=== PATIENT | female | born 1955 | race Caucasian/White ===

== ENCOUNTER 2023-02-22 09:59 | Outpatient (CLI) | payer MEDICARE, BC, SELFPAY | END 2023-02-22 10:00 | disposition home or self-care (01) | PROVIDERS: PCP Family Medicine; Referring Provider Family Medicine; Visit Provider Nurse Practitioner Family | DX: R30.0 Dysuria (principal); N39.0 Urinary tract infection, site not specified | CPT/HCPCS: 87086; 87186 ==

== ENCOUNTER 2024-06-03 13:00 | Outpatient (RCR) | payer MEDICARE, BC, SELFPAY | END 2024-08-10 12:36 | disposition home or self-care (01) | PROVIDERS: PCP Family Medicine; Visit Provider Family Medicine | DX: R39.15 Urgency of urination (principal); N81.10 Cystocele, unspecified; Z51.89 Encounter for other specified aftercare | CPT/HCPCS: 97110; 97112; 97140; 97162; 97530; 97535 ==

== ENCOUNTER 2025-03-08 05:00 | Emergency (ER) | payer MEDICARE, BC, SELFPAY ==
--- OUTSIDE RECORDS SUMMARY | 2025-03-02 11:20 | XMS_ITS | Encounter Summary ---
Author Organization [facility] Address [address], [place] [address] Care Team Providers Care Installation Service Representative Name Role Phone Allen Juan MD Primary Care Provider [phone] Reason for Visit * Reason Comments Eye Exam Encounter Details Date Type Department Care Team (Late st Contact Info) Description 03/02/2025 11:20 AM CDT Office Visit [facility] [address] [place], [place] [phone] Ashely Thompson, OD [address] [place] [address] Examination of eyes and vision (Primary Dx); Presbyopia; Regular astigmatism of both eyes; Hyperopia of both eyes; Dry eye syndrome of both eyes; History of pterygium excision; Salzmann's nodular dystrophy of left eye; Age-related nuclear cataract of both eyes Social History Tobacco Use Types Packs/Day Years Used Date Smoking Tobacco: Never Assessed Comments Unknown Sex and Gender Information Value Date Recorded Sex Assigned at Not on file Legal Sex Female 10:46 AM CDT Gender Identity Not on file Sexual Orientation Not on file documented as of this encounter Patient Instructions * Patient Instructions* Ashely Thompson, OD - 03/02/2025 11:20 AM CDT If you have questions, you can send me a message through [employer] or call [phone]. Call [phone] or [phone] (after hours) with any new or worsening eye symptoms. Treatments [x] Artificial tears/lubricant drops (Refresh, Systane, Retaine, Blink, Optive, TheraTears) At least 4x/daily, I like systane complete, refresh Stephen-3, or Retaine eye drops. [x] Lubricating ointment (Systane Night Time, Soothe Night Time, Systane Gel, Retaine PM, Genteal Gel) At bedtime, both eyes [x] Boerne-3 oils (DHA and EPA), which typically come from fish. Do not use if you are on anti-coagulant therapy or have seafood allergies. Recommended brands include [employer] Ultimate Boerne, Stephen Red Krill oil (a triglyceride form), Barlean's liquid, or Coromega Packets. Take according to strap making machine operator's directions Avoid fans at night, a humidifer in bedrooms can also help dryness. If symptoms do not improve in 2-4 weeks, schedule follow up and we can consider additional options such as prescription dry eye medications (restasis) documented in this encounter Progress Notes * Ashely Thompson, OD - 03/02/2025 11:20 AM CDT I reviewed the patient's past medical history, medications, family history, and social history. General: Generally healthy appearing. Alert and oriented x 3. Subjective: See tech note for today, agree. Assessment: ICD-10-CM 1. Examination of eyes and vision Z01.00 2. Presbyopia H52.4 Refractive State, Determination Of - Bilateral 3. Regular astigmatism of both eyes H52.223 Refractive State, Determination Of - Bilateral 4. Hyperopia of both eyes H52.03 Refractive State, Determination Of - Bilateral 5. Dry eye syndrome of both eyes H04.123 6. History of pterygium excision Z98.890 7. 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 Age-related nuclear cataract of both eyes H25.13 Plan: Plan: 1-4. Updated glasses prescription provided to patient. 5-7. Recommended the following: [x] Artificial tears/lubricant drops (Refresh, Systane, Retaine, Blink, Optive, TheraTears) At least 4x/daily, I like systane complete, refresh Stephen-3, or Retaine eye drops. [x] Lubricating ointment (Systane Night Time, Soothe Night Time, Systane Gel, Retaine PM, Genteal Gel) At bedtime, both eyes [x] Boerne-3 oils (DHA and EPA), which typically come from fish. Do not use if you are on anti-coagulant therapy or have seafood allergies. Recommended brands include [employer] Ultimate Boerne, Stephen Red Krill oil (a triglyceride form), Barlean's liquid, or Coromega Packets. Take according to strap making machine operator's directions Avoid fans at night, a humidifer in bedrooms can also help dryness. Cataracts are not visually significant at this time. Monitor. If symptoms do not improve in 2-4 weeks, schedule follow up and we can consider additional options such as prescription dry eye medications (restasis), otherwise RTC for annual eye exams. documented in this encounter Plan of Treatment Not on file documented as of this encounter Visit Diagnoses Diagnosis Examination of eyes and vision- Primary Presbyopia Regular astigmatism of both eyes Regular astigmatism Hyperopia of both eyes Dry eye syndrome of both eyes History of pterygium excision Salzmann's nodular dystrophy of left eye Age-related nuclear cataract of both eyes Senile nuclear sclerosis documented in this encounter Care Teams Installation Service Representative Relationship Specialty Start Date End Date Allen Juan MD [address] [place] [address] PCP - General 12/09/10 documented as of this encounter
[2025-03-08] VITALS (9 sets, daily range): BP systolic 120–138; BP diastolic 70–81; PULSE 62–67; RESP 13–18; TEMP 36.7–36.8; O2SAT 94–99; BMI 22.9
--- OUTSIDE RECORDS SUMMARY | 2025-03-08 05:02 | XMS_ITS | Clinical Summary ---
Author Organization [facility] Address [address] [place] [address] Care Team Providers Care Environmental Advisor Name Role Phone System, Provider Not In Primary Care Provider Un available Allergies Active Allergy Reactions Criticality Noted Date Comments Cephalexin Hcl Hives High 12/23/2012 Cephalexin 01/13/2019 Medications Multiple Vitamins-Iron (MULTIVITAMIN/I KAILA PO) Take 1 tablet by mouth daily. Active estradiol (ESTRACE) 0.5 MG tablet 03/21/2018 Active fluticasone (FLONASE) 50 MCG/ACT sprayIndication s:Chronic rhinitis SPRAY 2 SPRAYS INTO BOTH NOSTRILS DAILY 16 mL 2 05/07/2018 Active Active Problems Patient Care Coordination No te Formatting of this note migh t be different from the original. [email or web address] Problem Noted Date Diagnosed Date Hip pain, left 03/13/2016 Family history of colon canc er- repeat in 2018 - mother w/ colon ca age 80 03/06/2016 Cavernous hemangioma of live r- found at time of hysterectomy in 2012 - MRI confirmed it- considered benign 03/06/2016 Neoplasm of uncertain behavi or of skin- left upper back - assymetric pigmentation - suspicious- recommended removal 03/06/2016 History of basal cell carcinoma 03/10/2015 Overview (03/10/2015): back, right lower leg HL (hearing loss) 01/21/2015 History of colon polyps 01/18/2013 Family history of colonic polyps 01/18/2013 Atypical lobular hyperplasia of breast 1 Hot flashes, menopausal - wa s given ok by Dr. Ely s/p mastectomies and Dr. Deep Godwin s/p her hysterectomy -BSO in 2012 to be on estrogen 03/12/2011 Sleeplessness 03/12/2011 Bilateral malignant neoplasm of breast in female - ER+ in 2009-s/p B mastectomies in 2012 - was on tamoxifen - now s/p dble mastectomy- Atypical Lobular and Ductal Hyperplasia- stage 1 breast cancer 05/08/2010 Overview (03/06/2016): in 2009-s/p B mastectomies in 2012 - was on tamoxifen prior to mastectomies - now s/p dble mastectomy- Atypical Lobular and Ductal Hyperplasia- stage 1 breast cancer - was given ok by Dr. Ely and Dr. Deep Godwin s/p her hysterectomy -BSO in 2012 to be on estrogen Resolved Problems Problem Noted Date Diagnosed Date Resolved Date Advanced directives, counseling/discussion 03/14/2017 02/23/2024 Overview (07/11/2011): 07/11/11 - PT will send copy. CARDIOVASCULAR SCREENING; LD L GOAL LESS THAN 160 07/08/2010 06/18/2018 Immunizations Immunization Administration Dates Next Due Influenza Vaccine >6 months,quad, PF 06/15/2018 TD,PF 7+ (Tenivac) 05/31/2005 TDAP Vaccine (Boostrix) 02/27/2015 Zoster vaccine, live 03/06/2016 Family History Medical History Relation Comments Cerebrovascular Disease Father Hypertension Father Prostate Cancer Father Breast Cancer Maternal Aunt 1 dx early 50's do uble mastectomy 80's now and doing fine Breast Cancer Maternal Aunt 2 many different c ancers as well s breast cancer in her 70's Heart Disease Maternal Grandfather Cancer - colorectal Mother Cardiovascular Mother F5 gene carries Leiden [id number] Colon Cancer Mother Genetic Disorder Mother Blood clots - L yden V Hyperlipidemia Mother Breast Cancer Paternal Aunt of cancer Heart Disease Paternal Grandfather Relation Status Comments Brother 1 Alive Brother 2 Alive Brother 3 Alive Father Maternal Aunt 1 Alive Maternal Aunt 2 Maternal Grandfather Maternal Grandmother Mother Alive Paternal Aunt Paternal Grandfather Paternal Grandmother Sister 1 Alive Sister 2 Alive Son 1 Alive Son 2 Alive Social History Tobacco Use Types Packs/Day Years Used Date Smoking Tobacco: Never Smokeless Tobacco: Never Alcohol Use Standard Drinks/Week Comments Yes 0 (1 standard drink = 0.6 oz pure alcohol) occasionally red wine 3-4x/week PHQ-2 Answer Date Recorded PHQ-2 Score 0 03/30/2018 Adolescent Education Answer Date Record ed Getting School Help Needed Not on file 06/15 Comments No Sex and Gender Information Value Date Recorded Sex Assigned at Not on file 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 Gender Identity Not on file Sexual Orientation Not on file Last Filed Vital Signs Vital Sign Reading Time Taken Comments Blood Pressure 117/79 01/13/2019 8:40 AM CDT Pulse 54 01/13/2019 8:40 AM CDT Temperature 35.9 C (96.7 F) 06/18/2018 10:38 AM CDT Respiratory Rate 16 01/13/2019 8:40 AM CDT Oxygen Saturation 100% 01/13/2019 8:40 AM CDT Inhaled Oxygen Concentration - - Weight 74.8 kg (165 lb) 01/13/2019 7:36 AM CDT Height 175.3 cm (5' 9) 01/13/2019 7:36 AM CDT Body Mass Index 24.37 01/13/2019 7:36 AM CDT Plan of Treatment Not on file Insurance [employer] Care Teams Environmental Advisor Relationship Specialty Start Date End Date System, Provider Not In PCP - General Clinic 02/14/20
--- OUTSIDE RECORDS SUMMARY | 2025-03-08 05:02 | XMS_ITS | Encounter Summary ---
Author Organization [facility] Address [address] [place] [address] Care Team Providers Care Medical Superintendent Name Role Phone Kerri Ramos MD Primary Care Provider Alison Morales PA-C Unavailable [phone] Alison Morales PA-C Unavailable [phone] Sarah Olvera PA-C Unavailable [phone] System, Provider Not In Primary Care Provider Un available Reason for Visit * Reason Onset Date Comments Refill Request 06/15/2018 Estrace Encounter Details Date Type Department Care Team (Late st Contact Info) Description 06/15/2018 [facility] Medical Advice [address] [phone] Kerri Ramos MD [address] [place] [address] Refill Request (Estrace) Social History Tobacco Use Types Packs/Day Years Used Date Smoking Tobacco: Never Smokeless Tobacco: Never Alcohol Use Standard Drinks/Week Comments Yes 0 (1 standard drink = 0.6 oz pure alcohol) occasionally red wine 3-4x/week PHQ-2 Answer Date Recorded PHQ-2 Score 0 03/30/2018 Comments No Sex and Gender Information Value Date Recorded Sex Assigned at Not on file 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 Pt states she would liketo discuss this with clinical cytopathologist as she does not understand why no provider at will prescribethe HRT with her medical history. Giving message to [place]. * Telephone Encounter - Yarely Rivers RN - 06/22/2018 2:31 PM CDT Called patient @ [phone] Advised of JALEEL GARSIA message below - patient stated that she did not want to have to do 2 physicals every year just to get this medication renewed. Patient was very upset that this would not be renewed at the clinic. (RN advised that if OBGYN did a PAP, we would not need to repeat it in clinic. Theycan send clinic results). Patient would like to know which provider at this clinic will renew this medication for her otherwise she stated she will find a new clinic. Routing to PCP for further review/recommendations/orders. Yarely Rivers RN [place] Triage * Telephone Encounter - Alison Morales PA-C - 06/22/2018 8:46 AM CDT Please let patient know that if this is advised by the [employer] provider, this medication should be renewed by them. Due to the risks associated with hormone replacement including heart disease, blood clots, stroke and breast cancers, I am more comfortable to have this medication managed by her [facility] [employer]. Patient's history was also reviewed by Dr. Ramos who agrees with this recommendation due topatient's medical history. Thank you. * Telephone Encounter - Yarely Rivers RN - 06/18/2018 1:18 PM CDT Per note below - patient does not plan to Follow-up with OBGYN. Is this something you can take over prescribing? Routing to PCP for further review/recommendations/orders. Yarely Rivers RN [place] Triage * Telephone Encounter - Alison Morales PA-C - 06/17/2018 4:09 PM CDT If this is followed by [facility] [employer], it should be renewed by them. Please have her contact their office for refills. Thank you. * Telephone Encounter - Arlene Wood RN - 06/17/2018 2:11 PM CDT Patient states that she was advised to go to [facility] to see if this medication was appropriate for her. Patient states that the [facility] [employer] found the 0.75 mg dose the effective dose to control the patient's hot flashes and allow her to sleep. Patient had her CPE this March. Does not plan to continue to see the [facility] [employer] [employer] every year. Arlene Wood RN * Telephone Encounter - Alison Morales PA-C - 06/17/2018 2:00 PM CDT I have not prescribed this since March 2017. Please ask patient who has bene tracking this medication and verify dose please. * Telephone Encounter - Yarely Bai RN - 06/16/2018 4:20 PM CDT Requested Prescriptions Pending Prescriptions Disp Refills ??? estradiol (ESTRACE) 0.5 MG tablet 90 tablet 1 Sig: Take 1 tablet (0.5 mg) by mouth daily There is no refill protocol information for this order Last Written Prescription Date: historical Last Fill Quantity: historical, # refills: historical Last office visit: 04/07/2018 with prescribing provider: Morro Future Office Visit: Next 5 appointments (look out 90 days) Jun 18, 2018 10:20 AM CDT Pre-Op physical with Sarah Olvera PA-C [facility] [address] [place] [phone] Routing refill request to provider for review/approval because: Drug not on the [facility] refill protocol : Routine exam was done with KR on 03/30/2018. Yarely Tolbert RN [facility] [employer] Triage documented in this encounter Plan of Treatment Not on file documented as of this encounter Visit Diagnoses Not on filedocumented in this encounter Care Teams Medical Superintendent Relationship Specialty Start Date End Date Kerri Ramos MD [address] [place] [address] PCP - General Family Practice 03/06/16 02/13/20 Alison Morales PA-C [address] [place] [address] PCP - Assigned PCP 04/12/18 11/10/18 System, Provider Not In PCP - General Clinic 02/14/20 Alison Morales PA-C [address] [place] [address] Assigned PCP 04/12/18 02/27/19 Sarah Olvera PA-C [address] [place] [address] Assigned PCP 02/28/19 06/23/21 documented as of this encounter
--- OUTSIDE RECORDS SUMMARY | 2025-03-08 05:02 | XMS_ITS | Encounter Summary ---
Author Organization [facility] Address [address] [place] [address] Care Team Providers Care Regional Dedicated Truck Driver Name Role Phone [facility] Primary Care Provider Kerri Ramos MD Primary Care Provider Alison Morales PA-C Unavailable [phone] Alison Morales PA-C Unavailable + Sarah Olvera PA-C Unavailable [phone] System, Provider Not In Primary Care Provider Un available Encounter Details Date Type Department Care Team (Late st Contact Info) Description 03/05/2016 [facility] [address] [phone] Angeli Carcamo RN Social History Tobacco Use Types Packs/Day Years Used Date Smoking Tobacco: Never Smokeless Tobacco: Never Alcohol Use Standard Drinks/Week Comments Yes 0 (1 standard drink = 0.6 oz pure alcohol) occasionally red wine 3-4x/week Comments No Sex and Gender Information Value Date Recorded Sex Assigned at Not on file 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 Gender Identity Not on file Sexual Orientation Not on file documented as of this encounter Plan of Treatment Not on file documented as of this encounter Visit Diagnoses Not on filedocumented in this encounter Care Teams Regional Dedicated Truck Driver Relationship Specialty Start Date End Date [address] [address] PCP - General 02/07/16 03/05/16 Kerri Ramos MD [address] [place] [address] PCP - General Family Practice 03/06/16 02/13/20 Alison Morales PA-C [address] [place] [address] [place] [address] PCP - Assigned PCP 04/12/18 11/10/18 System, Provider Not In PCP - General Clinic 02/14/20 Alison Morales PA-C [address] [place] [address] [place] [address] Assigned PCP 04/12/18 02/27/19 Sarah Olvera PA-C [address] [place] [address] Assigned PCP 02/28/19 06/23/21 documented as of this encounter
--- OUTSIDE RECORDS SUMMARY | 2025-03-08 05:02 | XMS_ITS | CCD ---
Author Name Interface, [id number] Address [address] [facility] [address] [address] Organization [facility] Address [address] [facility] [address] [address] Care Team Providers Care Cold Rolling Coordinator Name Role Phone Lilly JOHN, Cong Unavailable Unavailable Zhang JOHN, Nisa Unavailable Unavailable Allergies and Adverse Reactions Medication/Group Name Reaction Severity Date cephalexin Hives 04/02/2016 Cephalosporins Hives 04/02/2016 Reason for Visit KEY ACCOUNT REPRESENTATIVE - 171 KEY ACCOUNT REPRESENTATIVE - LOW WBC/CKIN 230PM Functional Status Date Name Score 06/28/2019 Karnofsky performance status 80 Medications Date Name Route Dose Frequency Instructions Start Date End Date Status 9 Estradiol Oral PO 1.0 TABLET(S ) as directed 9 active Problems Diagnosis Status Date of Diagnosis Resolution Date Leukopenia (disorder) Active Menopausal flushing (finding) Active Atypical ductal hyperplasia of breast (disorder) Active At risk of malignancy (finding) Active Anemia (disorder) Active Leukopenia (disorder) Active 04/13/2019 Social History Date Name Value Sex Female
--- OUTSIDE RECORDS SUMMARY | 2025-03-08 05:02 | XMS_ITS | Clinical Summary ---
Author Organization [facility] Address [address] [place] [id number] Care Team Providers Care Track Laying Equipment Operator Name Role Phone Selina Harris DO Primary Care Provider [phone] Allergies Active Allergy Reactions Criticality Noted Date Comments Cephalexin Hives 10/12/2011 Ragweed Pollen Itching 05/07/2022 Medications fluticasone (50 mcg per actuation) nasal solution (FLONASE) Inhale 1 [place] into both nostrils once daily. Active multivitamin (MVI) tablet Take 1 tablet by mouth once daily. Active calcium carbonate/vitami n D3 (CALCIUM 600 + D,3, ORAL) Take by mouth. Active fehvsca-K2-zdiaj oakf-D-Q1-min 166.6 mg-4.15 mcg-83.3 mg tab 3 Active estradioL (ESTRACE) 0.5 mg tabletIndication s:Surgical menopause on hormone replacement therapy TAKE 1 TABLET BY MOUTH ONCE DAILY. 90 Tablet 4 Active Active Problems Problem Noted Date Diagnosed Date Other insomnia 05/29/2023 Keratoconjunctivitis sicca 05/07/2022 History of breast cancer 01/08/2022 Overview (01/08/2022): Status post bilateral mastectomy Surgical menopause on hormone replacement therap y 01/08/2022 Resolved Problems Problem Noted Date Diagnosed Date Resolved Date Bilateral malignant neoplasm of breast in female, unspecified estrogen receptor status, unspecified site of breast 05/07/2022 05/07/2022 Immunizations Immunization Administration Dates Next Due Influenza, IIV4 06/01/2020 Influenza,CCIIV4 PRESERV FREE 06/15/2018 Td, Preservative Free (age >= 7 Years) 5 Tdap 02/27/2015 Zoster (Shingrix-RZV, recombinant) 05/31/2021 Zoster (Zostavax-ZVL, live) 03/06/2016 Family History Medical History Relation Name Comments Heart Disease Father ? Cancer-colon Mother Hyperlipidemia Mother Heart attack Paternal Grandfather Bilateral breast cancer Sister Solange Bipolar disorder Son Relation Name Status Comments Father Mother Alive Paternal Grandfather Sister Solange Alive Son Social History Tobacco Use Types Packs/Day Years Used Date Smoking Tobacco: Never Smokeless Tobacco: Never Tobacco Cessation:Counseling Given: Yes Alcohol Use Standard Drinks/Week Comments Yes 3 (1 standard drink = 0.6 oz pur e alcohol) a week PHQ-2 Answer Date Recorded PHQ-2 TOTAL SCORE 0 01/16/2024 Social Connections Answer Date Recorded Frequency of Communication with Friends and Fami ly 0 05/25/2023 Financial Resource Strain Answer Date R ecorded Difficulty of Paying Living Expenses 3 05/25/2023 Difficulty of Paying Living Expenses Not on file 05/25/2023 Food Insecurity Answer Date Recorded Worried About Running Out of Food in the Last Ye ar 1 05/25/2023 Transportation Needs Answer Date Record ed Lack of Transportation (Medical) 1 05/25/2023 Housing Stability Answer Date Recorded Unable to Pay for Housing in the Last Year 1 05/25/2023 Comments No Sex and Gender Information Value Date Recorded Sex Assigned at Not on file Legal Sex Female 6:49 AM MEDICAL RADIATION DOSIMETRIST Gender Identity Not on file Sexual Orientation Not on file Obstetrics History Para Term AB IAB SAB Ectopic Multiple Livin g Live Births 2 2 Date Outcome GA Total Labor Labor/2nd/3rd Weight Sex Type Anes PTL Nuha A1 A5 Name Clin Para Para Last Filed Vital Signs Vital Sign Reading Time Taken Comments Blood Pressure 136/81 04/13/2024 12:49 PM CDT Pulse 83 04/13/2024 12:49 PM CDT Temperature 36.2 C (97.2 F) 04/13/2024 12:49 PM CDT Respiratory Rate 16 04/13/2024 12:49 PM CDT Oxygen Saturation 97% 04/13/2024 12:49 PM CDT Inhaled Oxygen Concentration - - Weight 75.6 kg (166 lb 9.6 oz) 04/13/2024 12:49 PM CDT Height 172.6 cm (5' 7.95) 04/13/2024 12:49 PM C DT Body Mass Index 25.37 04/13/2024 12:49 PM CDT Plan of Treatment Health Maintenance Due Date Last Done Comments Pneumococcal series for age 50+ (1 of 1 - PCV) 2006 RSV vaccine for adults or (1 - Risk 60-74 years 1-dose series) 2016 Zoster (shingles) series for age 50+ (3 of 3) 07/26/2021 05/31/2021, 03/06/2016 COVID-19 vaccine series ( - season) 2024 06/08/2023, 02/25/2022 Depression screening for age 12+ 01/15/2025 01/16/2024, 01/16/2024, 05/07/2022 Medicare Wellness for age 65+ 01/16/2025 01/16/2024, 05/07/2022 Tetanus booster 02/27/2025 02/27/2015, 02/2012 [facility] 05/31/2005 BMI (ht and wt on same day) for age 18+ 04/13/2025 04/13/2024, 01/16/2024, 05/07/2022 Influenza Vaccine (Season Ended) 2025 06/01/2020, 06/15/2018 Lipids for age 45-75 01/15/2029 01/16/2024, 01/09/20 22 Colonoscopy through age 75 03/16/202903/16, 03/10/2024, 03/10/2024, Additional history exists Tdap Completed 02/27/2015 DEXA/DXA scan for age 65+ Completed 01/08/2022 Hepatitis C screening for age 18-79 Completed 01/08/2022 Hepatitis B series for 19+ Aged Out N o longer eligible based on patient's age to complete this topic Medical Devices Implanted Type Area Fire Watchman Device Identifier Shelf Expiration Date Model / Serial / Lot [id number] implnt Mammary 275cc [[id number]] Implanted:Qty: 1 on 10/10/2011 at [facility] Explanted:at [facility] (Quantity not on file) Right: Breast [employer] [id number] C# / [id number] / [id number] implnt Mammary 275cc [[id number]] Implanted:Qty: 1 on 10/10/2011 at [facility] Explanted:at [facility] (Quantity not on file) Left: Breast [employer] [id number] C# / [id number] / [id number] Dermis Flex Hd [id number] Acellular - [id number] Implanted:Qty: 1 on 10/10/2011 at [facility] Explanted:at [facility] (Quantity not on file) Right: Breast Musculoskeletal Transplant 07/03/2014 [id number] / [id number] / Dermis Flex Hd [id number] Acellular - [id number] Implanted:Qty: 1 on 10/10/2011 at [facility] Explanted:at [facility] (Quantity not on file) Left: Breast Musculoskeletal Transplant 07/03/2014 [id number] / [id number] / Procedures Procedure Name Priority Date/Time Associated Diagnosis Comments COLONOSCOPY SCREENING Routine 03/10/2024 10:50 AM CDT History of colon polyps LIPID PANEL W REFLEX MEASURED LDL Routine 01/16/2024 11:27 AM CDT Screening for hyperlipidemia XR DXA BONE DENSITY 2 SITES AXIAL Routine 01/08/2022 3:12 PM CDT Osteoporosis screening Post-menopausal ANTI HCV Routine 01/08/2022 1:41 PM CDT Need for hepatitis C screening test from Last 3 Months or Most Recently Relevant to Health Maintenance Results * COLONOSCOPY (03/10/2024 11:26 AM CDT) 03/10/2024 11:2 6 AM CDT Narrative Transcriptions Gadek, Zaheer Marek, MD - 03/16/2024 12:17 PM CDT Patient Name: Anette Bryan Procedure Date: 03/10/2024 Gender: Female Date of : 1955 Admit Type: Outpatient Procedure: Colonoscopy Proceduralist: Zaheer Lopez MD , Krissy Flores, RN(Nurse), Tere Le (Nurse) Referring MD: Selina Harris Indications/Pre-Op Diagnosis: High risk colon cancer surveillance:Personal history of colonic polyps, Last colonoscopy: January 2019 Medications: Fentanyl 100 micrograms IV, Midazolam 3 mgIV, The level of sedation administered wasmoderate Procedure Description: The patient had risks, benefits and alternatives explained to andgave informed consent. The patient had a stable cardiopulmonary status and judged an adequate candidate for conscious sedation. The [id number]-[id number] was passed through the anus and advanced to the cecum, identified by appendiceal orifice and ileocecal valve. The colonoscopy was performed without difficulty. The patient toleratedthe procedure well. The quality of the bowel preparation was good. The ileocecal valve, appendiceal orifice, and rectum were photographedbut not saved due to an internet outage. Complications: No immediate complications. Estimated Blood Loss & Specimen: Estimated blood loss: none. Specimen collected - None Findings: The perianal and digital rectal examinations were normal. The colon (entire examined portion) was moderately redundant. The exam was otherwise without abnormality. Impressions/Post-Op Diagnosis: - Redundant colon. - The examination was otherwise normal. - No specimens collected. Recommendation: - Patient has a contact number available for emergencies. The signsand symptoms of potential delayed complications were discussed with the patient. Return to normal activities tomorrow. Written discharge instructions were provided to the patient. - Resume previous diet. - Continue present medications. - Repeat colonoscopy in 5 years for surveillance. Moderate Sedation: A time out was performed before the procedure. Moderate (conscious) sedation was administered by the endoscopy nurse and supervised bythe endoscopist. The following parameters were monitored: oxygensaturation, heart rate, blood pressure, EKG, CO2, respiratory rate, adequacy of pulmonary ventilation and reponse to care. Please refer to the patient's medical record flowsheets and nursing notes for moderate sedation details. Total physician intraservice time was 23 minutes. Zaheer Lopez MD 03/16/2024 12:17:22 PM This report has been signed electronically. Note Initiated On: 03/10/2024 11:26 AM Procedure Code(s): --- Professional --- 16025, Colonoscopy, flexible; diagnostic, including collection of specimen(s) bybrushing or washing, when performed (separateprocedure) Diagnosis Code(s): --- Professional --- Z86.010, Personal history of colonicpolyps Q43.8, Other specified congenitalmalformations of intestine CPT copyright 2022 [employer]. All rights reserved. The codes documented in this report are preliminary and upon medical biller coder reviewmay be revised to meet current compliance requirements. us Zaheer Lopez MD PROCEDURE ORD Final Res ult * (ABNORMAL) LIPID PANEL W REFLEX MEASURED LDL (01/16/2024 11:27 AM CDT) CHOLESTEROL,TOTAL 232(H) 100 - 199 mg/dL 01/16/2024 9:46 PM CDT [facility] Comment: Cholesterol, Total Reference Ranges Desirable <200 mg/dL Borderline 200-239 mg/dL High >=240 mg/dL TRIGLYCERIDES 90 <150 mg/dL 01/16/2024 9:46 PM CDT [facility] HDL CHOLESTEROL 81 >40 mg/dL 9:46 PM CDT [facility] NON-HDL CHOLESTEROL 151(H) <145 mg/dl 01/16/2024 9:46 PM CDT [facility] CHOL/HDL RATIO 2.86 <4.50 01/16/2024 9:46 PM CDT [facility] LDL CHOLESTEROL 133(H) <=130 mg/dL 01/16/2024 9:46 PM CDT [facility] VLDL CHOLESTEROL 18 <=30 mg/dL 01/16/2024 9:46 PM CDT [facility] PROVIDER ORDERED STATUS RANDOM 01/16/2024 9:46 PM CDT [facility] TRA [facility] Blood BLOOD SPECIMEN / Unknown Venipuncture / Unknown 01/16/2024 11:27 AM CDT 01/16/2024 11:28 AM CDT us Selina Harris DO CHEMISTRY Final Result [facility] [address] [place] [address], * (ABNORMAL) XR DXA BONE DENSITY 2 SITES AXIAL (01/08/2022 3:12 PM CDT) Anatomical Region Laterality Modality Spine, HIPS, HIPL, HIPR Other Impressions 01/14/2022 3:05 PM CDT Osteopenia. RECOMMENDATIONS: The National Osteoporosis Foundation recommends pharmacologic treatment for patients with T-scores of -2.5 or less, patients with prior history of fragility fractures, or patients with 10-year probability of greater than 3% at hips or greater than 20% of suffering major osteoporotic fractures. Recommend continued optimization of calcium and vitamin D intake through dietary means and/or supplementation and regular exercise. Repeat scan recommended in 3-5 years. Giselle Snell PA-C Narrative 01/14/2022 3:05 PM CDT For Patients: Results are automatically released to your [employer]) account once available, in compliance with federal regulations. This means that you may see your results before your provider has had a chance to review them. Please allow 2-3 business days for your provider to comment on the results. XR DXA Bone Mineral Density (BMD) EXAM LOCATION: [facility] [address] [facility] [address] PATIENT NAME: Anette Bryan DATE OF : 1955 EXAM DATE: 01/08/2022 REQUESTING PROVIDER: Selina Harris DO GENDER AT : female HEIGHT: 5' 9 (05/25/2013) WEIGHT: 161 lb 12.8 oz (01/08/2022) MENOPAUSAL STATUS: Postmenopausal RACE/ETHNICITY: White RISK FACTORS: Cancer Treatment and White Race CURRENT MEDICATION FOR BONE LOSS: NONE INDICATION: Screening for osteoporosis and Post-Menopause COMPARISON DATE(S): None DXA scans are compared to prior studies for a patient only when the two (or more) studies were performed on the same scanner. It is not possible to compare data generated on one scanner to data from another because there are not standards in DXA equipment. This applies even if the two scanners are made by the same waiter/waitress bar. PROCEDURE: Dual-energy x-ray absorptiometry performed with routine technique. Reporting is completed in the form of a T-score. The T-score represents the standard deviation from peak bone mass based on young healthy adult. A Z-score is used for diagnosis in premenopausal women, and for men under the age of 50. FINDINGS: RESULT LUMBAR SPINE L1 - L4 (EXCLUDE L2) BMD: 1.204 g/cm2 T-Score: + 0.1 Z-Score: + 1.5 Change from prior: None RESULTS FEMUR Left femoral neck BMD: 0.874 g/cm2 T-Score: - 1.2 Z-Score: + 0.1 Change from prior: None Right femoral neck BMD: 0.838 g/cm2 T-Score: - 1.4 Z-Score: - 0.1 Change from prior: None Left hip BMD: 0.882 g/cm2 T-Score: - 1.0 Z-Score: + 0.0 Change from prior: None Right hip BMD: 0.915 g/cm2 T-Score: - 0.7 Z-Score: + 0.3 Change from prior: None WHO criteria: Normal: T-score at or above -1 SD Osteopenia: T-score between -1.1 and -2.4 SD Osteoporosis: T-score at or below -2.5 SD FRAX RISK CALCULATION (USED FOR OSTEOPENIA ONLY): 10-year probability of major osteoporotic fracture: 8.7%. 10-year probability of hip fracture: 0.9%. Selina Nuha Mikyqra DO DEXA Final Result * ANTI HCV (01/08/2022 1:41 PM CDT) HEPATITIS C ANTIBODY Non-React jeronimo Non-React jeronimo 01/09/2022 12:06 AM CDT [facility] Comment:Antibodies to HCV no t detected; does not exclude the possibility of exposure to HCV. Blood BLOOD SPECIMEN / Unknown Venipuncture / Unknown 01/08/2022 1:41 PM CDT 01/08/2022 1:41 PM CDT Selina Nuha Mikyqra DO SEND OUTS Final Result Performing Organization Address City/State/[facility] Co de Phone Number [facility] 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
--- OUTSIDE RECORDS SUMMARY | 2025-03-08 05:02 | XMS_ITS | Encounter Summary ---
Author Organization [facility] Address [address] [place] [address] Care Team Providers Care Nuclear Control Room Operator Name Role Phone Kerri Ramos MD Primary Care Provider Alison Morales PA-C Unavailable [phone] Alison Morales PA-C Unavailable [phone] Sarah Olvera PA-C Unavailable [phone] System, Provider Not In Primary Care Provider Un available Encounter Details Date Type Department Care Team (Late st Contact Info) Description 03/18/2017 [facility] Medical Advice [address] [phone] Kerri Ramos MD [address] [place] [address] Social History Tobacco Use Types Packs/Day Years Used Date Smoking Tobacco: Never Smokeless Tobacco: Never Alcohol Use Standard Drinks/Week Comments Yes 0 (1 standard drink = 0.6 oz pure alcohol) occasionally red wine 3-4x/week Comments No Sex and Gender Information Value Date Recorded Sex Assigned at Not on file Legal Sex Female 4:20 AM CLASSROOM COORDINATOR Gender Identity Not on file Sexual Orientation Not on file documented as of this encounter Plan of Treatment Not on file documented as of this encounter Visit Diagnoses Not on filedocumented in this encounter Care Teams Nuclear Control Room Operator Relationship Specialty Start Date End Date Kerri Ramos MD [address] [place] [address] PCP - General Family Practice 03/06/16 02/13/20 Alison Morales PA-C [address] [facility] [place] [place] [address] PCP - Assigned PCP 04/12/18 11/10/18 System, Provider Not In PCP - General Clinic 02/14/20 Alison Morales PA-C [address] [facility] [place] [address] Assigned PCP 04/12/18 02/27/19 Sarah Olvera PA-C [address] [place] [address] Assigned PCP 02/28/19 06/23/21 documented as of this encounter
--- OUTSIDE RECORDS SUMMARY | 2025-03-08 05:02 | XMS_ITS | Encounter Summary ---
Author Organization [facility] Address [address] [place] [address] Care Team Providers Care Oxyacetylene Welder Name Role Phone Kerri Ramos MD Primary Care Provider Sarah Olvera PA-C Unavailable [phone] System, Provider Not In Primary Care Provider Un available Encounter Details Date Type Department Care Team ([facility] st Contact Info) Description 02/02/2020 [facility] Medical Advice [address] [phone] Yarely Rivers RN Social History Tobacco Use Types Packs/Day Years Used Date Smoking Tobacco: Never Smokeless Tobacco: Never Alcohol Use Standard Drinks/Week Comments Yes 0 (1 standard drink = 0.6 oz pure alcohol) occasionally red wine 3-4x/week PHQ-2 Answer Date Recorded PHQ-2 Score 0 03/30/2018 Comments No Sex and Gender Information Value Date Recorded Sex Assigned at Not on file Legal Sex Female 4:20 AM SUPERVISOR GRADING Gender Identity Not on file Sexual Orientation Not on file documented as of this encounter Plan of Treatment Not on file documented as of this encounter Visit Diagnoses Not on filedocumented in this encounter Care Teams Oxyacetylene Welder Relationship Specialty Start Date End Date Kerri Ramos MD [address] [place] [phone] PCP - General Family Practice 03/06/16 02/13/20 System, Provider Not In PCP - General Clinic 02/14/20 Sarah Olvera PA-C [address] [place] [address] Assigned PCP 02/28/19 06/23/21 documented as of this encounter
--- OUTSIDE RECORDS SUMMARY | 2025-03-08 05:02 | XMS_ITS | Encounter Summary ---
Author Organization [facility] Address [address] [place] [address] Care Team Providers Care Recreational Therapist Name Role Phone Arabella Easley APRN MULTI CARE TECHNICIAN Primary Care Provider Unavailable Clinic - [facility] Primary Care Provider Kerri Ramos MD Primary Care Provider Alison Morales PA-C Unavailable [phone] Alison Morales PA-C Unavailable [phone] Sarah Olvera PA-C Unavailable [phone] System, Provider Not In Primary Care Provider Un available Encounter Details Date Type Department Care Team (Late st Contact Info) Description 02/27/2015 [facility] Medical Advice [address] [phone] Kari Bautista, RN Social History Tobacco Use Types Packs/Day Years Used Date Smoking Tobacco: Never Smokeless Tobacco: Never Alcohol Use Standard Drinks/Week Comments Yes 0 (1 standard drink = 0.6 oz pure alcohol) occasionally red wine 3-4x/week Comments No Sex and Gender Information Value Date Recorded Sex Assigned at Not on file Legal Sex Female 4:20 AM SNOW REMOVAL 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 Gender Identity Not on file Sexual Orientation Not on file documented as of this encounter Plan of Treatment Not on file documented as of this encounter Visit Diagnoses Not on filedocumented in this encounter Care Teams Recreational Therapist Relationship Specialty Start Date End Date Arabella Easley APRN MULTI CARE TECHNICIAN PCP - General Nurse Practitioner 02/21/14 02/06/16 Clinic - [facility] [address] [place] [address] PCP - General 02/07/16 03/05/16 Kerri Ramos MD [address] [place] [address] PCP - General Family Practice 03/06/16 02/13/20 Alison Morales PA-C [address] [facility] [place] [id number] PCP - Assigned PCP 04/12/18 11/10/18 System, Provider Not In PCP - General Clinic 02/14/20 Alison Morales PA-C [address] [place], [place] [address] [place] [address] Assigned PCP 04/12/18 02/27/19 Sarah Olvera PA-C [address] [place] [address] Assigned PCP 02/28/19 06/23/21 documented as of this encounter
--- OUTSIDE RECORDS SUMMARY | 2025-03-08 05:02 | XMS_ITS | Clinical Summary ---
[facility] Address [address] [place] [address] Care Team Providers Care Histologist Technologist Name Role Phone Allen Juan MD Primary Care Provider [phone] Source Comments You are receiving this document as you are listed as the primary care provider,follow-up provider, or the patient has been referred to you for consultation.This is in compliance with the Medicare andMedicaid EHR Incentive Program,which states Providers who transition their patient to another setting of careor provider of care or refers their patient to another provider of care shouldprovide summary care record for each transition of care or referral. [facility] Allergies Active Allergy Reactions Criticality Noted Date Comments Cephalexin Hives 05/05/2014 Medications Multiple Vitamins-Minera ls (MULTIVITAMIN OR) Take 1 tablet by mouth daily (every 24 hours). 100 13 11/25/2003 Active estradiol (ESTRACE) 0.5 MG tablet 03/21/2018 Active fluticasone (FLONASE) 50 MCG/ACT nasal solutionIndicat ions:Allergic Rhinitis Place 2 Sprays into both nostrils daily as needed for Allergies. Indications: Allergic Rhinitis Active Active Problems Problem Noted Date Diagnosed Date Salzmann's nodular dystrophy of left eye 018 Overview (05/28/2018): Added automatically from request for surgery [id number] Salzmann's nodular dystrophy 07/30/2011 Encounters Date Type Department Care Team Description 03/02/2025 11:20 AM CDT Office Visit [facility] [address] [place] [address] Ashely Thompson, OD Examination of eyes and vision (Primary Dx); Presbyopia; Regular astigmatism of both eyes; Hyperopia of both eyes; Dry eye syndrome of both eyes; History of pterygium excision; Salzmann's nodular dystrophy of left eye; Age-related nuclear cataract of both eyes from Last 3 Months Family History Medical History Relation Name Comments Cataract Father Cataract Mother Diabetes Negative Family History Glaucoma Negative Family History Macular Degeneration Negative Family History Retinal Detachment Negative Family History Relation Name Status Comments Father Mother Social History Tobacco Use Types Packs/Day Years Used Date Smoking Tobacco: Never Assessed Comments Unknown Sex and Gender Information Value Date Recorded Sex Assigned at Not on file Legal Sex Female 10:46 AM CDT Gender Identity Not on file Sexual Orientation Not on file Last Filed Vital Signs Vital Sign Reading Time Taken Comments Blood Pressure 113/73 07/13/2018 11:45 AM BUTTON TACKER Pulse 68 07/13/2018 11:45 AM BUTTON TACKER Temperature 36.5 C (97.7 F) 07/13/2018 11:18 AM BUTTON TACKER Respiratory Rate 16 07/13/2018 11:45 AM BUTTON TACKER Oxygen Saturation 97% 07/13/2018 11:45 AM BUTTON TACKER Inhaled Oxygen Concentration - - Weight 77.1 kg (170 lb) 07/09/2018 10:36 AM CDT Height 175.3 cm (5' 9) 07/09/2018 10:36 AM CDT Body Mass Index 25.1 07/09/2018 10:36 AM CDT Plan of Treatment Health Maintenance Due Date Last Done Comments Colon Cancer Screening Plan Due 1955 Hep C Screening (Preventive Services) 1955 Mammogram 1955 Cholesterol 2001 Pneumococcal Vaccine 50+ Yrs (1 of 1 - PCV) 2006 Zoster/Shingles Vaccine (3 o f 3) 07/26/2021 05/31/2021, 03/06/2016 Medicare Annual Wellness Visit 05/07/2023 05/07/2022 COVID-19 Vaccine (1 - 2023-2 5 season) 2024 DTaP/Tdap/Td Vaccine (2 - Tdap) 02/27/2025 02/27/2015, 05/31/2005 Influenza Vaccine (Season Ended) 2025 06/01/2020, 06/15/2018 RSV Vaccine (1 - 1-dose 75+ series) 2031 Dexa Completed 01/08/2022, 01/08/2022 HepA Vaccine Aged Out No longer eligi ble based on patient's age to complete this topic HepB Vaccine Aged Out No longer eligi ble based on patient's age to complete this topic Hib Vaccine Aged Out No longer eligi ble based on patient's age to complete this topic IPV (Polio) Vaccine Aged Out No longe r eligible based on patient's age to complete this topic MCV4 Vaccine Aged Out No longer eligi ble based on patient's age to complete this topic Meningococcal B Vaccine Aged Out No l onger eligible based on patient's age to complete this topic Insurance * Guarantor: Anette Bryan Account Type Relation to Patient Date of Phone Billing Address Personal/Family Self 1955 [id number] [place] [address] MEDICARE MANAGED CARE [facility] Care Teams Histologist Technologist Relationship Specialty Start Date End Date Allen Juan MD [address] [place] [address] PCP - General 12/09/10
--- NOTE | 2025-03-08 05:42 | ED.GENADULT ---
HPI - General Adult General Chief complaint: Hypotension Stated complaint: near passed out/low bp Time Seen by Provider: 03/08/25 05:18 Source: patient and family Limitations: no limitations History of Present Illness HPI narrative: 69-year-old female presents the emergency department after she felt lightheaded like she might be having low blood pressure at home. She had a surgical procedure for oral dumb congregational yesterday. Reports that she was given several medications during the procedure. One of which was some sort of long-acting sedative. She does not recall the name of the medication and did not bring the appropriate paperwork that documented it. She does state that she was started on several medications including prednisone and erythromycin. She then pulls out a postsurgical full dirt and tells me that there were 4 medications for sure, I can find documentation of 3 of these in the folder, none of them more prednisone nor erythromycin. It does look as though she was started on Medrol, azithromycin, and NSAID, but she cannot remember the 4th medication. This was prescribed by an oral surgeon and we do not have access to their records in the wee hours. Patient reports that she is prone to episodes of low blood pressure. She was awake early this morning and was starting to prep some food that she would be able to eat today since she is only allowed to eat soft foods. She was not experiencing any chest pain, shortness of breath or neurological changes. She finished boiling some eggs, she felt a little lightheaded and nauseated. She woke her and asked him to take her blood pressure. Reported that it was 80/60 on the home cuff. Blood pressure was reportedly high yesterday at the physician office. Blood pressure is normal in triage as well. Did not bring their cuff for calibration today. [place] sweaty during the episode, did not check her temperature. No recent symptoms of infection or acute illness. Does not take any beta-blockers or antihypertensives. No history of arrhythmias or coronary artery disease. No history of DVT or PE. Reports her past medical history is fairly benign. Prior hysterectomy, allergy to Keflex. Only home medication is oral estradiol. Nonsmoker. ROS notable for the episode of nausea and lightheadedness, otherwise denies times 12 systems. Related Data Previous Rx's ?Medication ?Instructions ?Recorded estradiol 0.5 mg tablet 0.5 mg PO QDAY #30 tabs 05/29/22 Allergies Allergy/AdvReac Type Severity Reaction Status Date / Time cephalexin (From Keflex) Allergy Mild Hives Verified 03/08/25 05:09 PFSH ON LICENSE OF [facility] Medical History Keratoconjunctivitis sicca ?H16.229 - Keratoconjunctivitis sicca, not specified as Sjogren's, unspecified eye (ICD-10) Insomnia ?G47.00 - Insomnia, unspecified (ICD-10) Breast cancer ?C50.919 - Malignant neoplasm of unspecified site of unspecified female breast (ICD-10) Hearing loss ?H91.90 - Unspecified hearing loss, unspecified ear (ICD-10) Surgical menopause on hormone replacement therapy ?E89.40 - Asymptomatic postprocedural ovarian failure (ICD-10) ?Z79.890 - Hormone replacement therapy (ICD-10) Urinary tract infection ?N39.0 - Urinary tract infection, site not specified (ICD-10) Surgical History History of removal of ovarian cyst ?Z98.890 - Other specified postprocedural states (ICD-10) ?Z87.42 - Personal history of other diseases of the female genital tract (ICD-10) S/P laparoscopic hysterectomy ?Z90.710 - Acquired absence of both cervix and uterus (ICD-10) H/O breast surgery ?Z98.890 - Other specified postprocedural states (ICD-10) H/O colonoscopy ?Z98.890 - Other specified postprocedural states (ICD-10) H/O breast biopsy ?Z98.890 - Other specified postprocedural states (ICD-10) Social History Smoking Status: Never smoker Second hand tobacco smoke exposure: No How often do you have a drink containing alcohol: never AUDIT-C Alcohol total score: 0 Non-prescribed substance use: denies use Exam Const: Vital Signs, click to edit/add: Vital Signs - 24 hr 03/08/25 05:06 03/08/25 05:07 03/08/25 05:12 Temperature 98.0 F 98.0 F Pulse Rate 63 62 Pulse Rate [Right Pulse Oximeter] 67 Respiratory Rate 18 18 18 Blood Pressure 138/81 129/77 Blood Pressure [Ri ght Upper Arm] 138/81 Pulse Oximetry 99 99 98 Oxygen Delivery Me thod Room Air 03/08/25 05:31 03/08/25 05:46 03/08/25 06:01 Temperature Pulse Rate 64 62 Pulse Rate [Right Pulse Oximeter] Respiratory Rate 13 18 Blood Pressure 120/75 121/81 Blood Pressure [Ri ght Upper Arm] Pulse Oximetry 98 98 98 Oxygen Delivery Me thod 03/08/25 06:31 Temperature 98.2 F Pulse Rate 63 Pulse Rate [Right Pulse Oximeter] Respiratory Rate 16 Blood Pressure 128/77 Blood Pressure [Ri ght Upper Arm] Pulse Oximetry 94 Oxygen Delivery Me thod Documenting provider has reviewed patient's vital signs: yes Common normals: no apparent distress and alert Other: Cooperative, pleasant. Not in distress. HENMT: Common normals: normocephalic and moist oral mucous membranes Head and scalp: normocephalic Other: Postsurgical changes along the gumline do seem consistent with reported history. Tiny tied sutures noted. No bleeding, no excessive swelling. Posterior oropharynx with normal appearing tonsillar pillars, tongue. No abnormalities to posterior pharynx. Eye: Common normals: conjunctivae normal General eye: normal appearance of both eyes Conjunctiva: conjunctiva(e) normal Neck & C-Spine: Common normals: full ROM and no lymphadenopathy General: normal visual inspection Resp: Common normals: normal respiratory effort, no use of accessory muscles and clear to auscultation bilaterally Effort & inspection: able to speak in complete sentences Auscultation: clear to auscultation bilaterally Cardio: Common normals: regular rate, regular rhythm, S1 normal heart sound, S2 normal heart sound and no murmurs Rate: regular rate Rhythm: regular rhythm Heart sounds: S1 normal and S2 normal GI: Common normals: Normal to inspection, nondistended, normoactive bowel sounds present, soft to palpation, non-tender, no hepatosplenomegaly and no masses Palpation: soft and no hepatosplenomegaly Extremity: Common normals: normal to inspection and normal capillary refill General: normal exam except as noted Neuro: Common normals: moves all extremities Sensorium/orientation: alert Speech: speech normal Motor exam: strength 5/5 throughout Psych: Common normals: mental status grossly normal, thought process normal, cooperative, affect normal and speech normal Speech: normal speech Thought process: normal thought process Insight: insight good Judgement: judgment good Skin: Common normals: no rashes or lesions noted General skin exam: no rashes or lesions noted Course Course ED Course: 61-year-old female with episode of lightheadedness, prone to episodes of hypotension. Normal vitals here in ED. I suspect that this was a medication reaction to the mild anesthesia she was given yesterday in combination with being NPO, possibly mildly dehydrated. Less likely this is a symptom of acute coronary syndrome, infection, sepsis, arrhythmia or other acute illness. Will place IV, give Zofran for nausea, 1 L of normal saline and basic labs to ensure that there is no major abnormality including a troponin an EKG. Await findings. Male sack cleaning hand will be running home to grab the proper list of medications for my review. Reevaluation(s) Time of Reevaluation #1: 06:47 Reevaluation #1: Patient feeling better after IV fluids and Zofran. She has had no return of the lightheaded symptoms that happened prior to arrival. We have not noticed any sign of arrhythmias, unstable vital signs, fevers or other abnormality. Labs show a slightly low sodium which could be explained by the nitrous oxide and other medications that she was given yesterday. Her significant other was not able to find the list of anesthetics and sedatives that she was given but did find that the 4th home medication medication was likely chlorhexidine mouthwash. Counseled patient that everything looks fairly reassuring here. I think that this was mostly a combination of her predisposition for low blood pressure combine with the medications, not eating and drinking well yesterday for the brief episode that she experienced. Counseled that unfortunately she is likely to get nausea again from the antibiotic and is likely to have hot flash episodes, flushing, GI changes from the methylprednisolone as well. I do want her to take her medications as prescribed by do think she might benefit from a little bit of Zofran we discussed some strategies including drinking a large glass of water and eating something salty and lying down for about 20 minutes if she has another mild episode. Any severe symptoms would of course warrant re-evaluation in the ED. she should follow the dietary restrictions as documented by her oral surgeon. All questions answered, written instructions provided. Vital Signs Vital signs: Initial Vital Signs Temperature 98.0 F 03/08/25 05:06 Temperature Source Temporal Artery Scan 03/08/25 05:06 Pulse Rate 67 03/08/25 05:06 Pulse Rhythm Regular 03/08/25 05:06 Pulse Strength 3+ Normal 03/08/25 05:06 Respiratory Rate 18 03/08/25 05:06 Blood Pressure 138/81 03/08/25 05:06 Blood Pressure Mean 100 03/08/25 05:06 Blood Pressure Position Supine 03/08/25 05:06 Pulse Oximetry 99 03/08/25 05:06 Oxygen Delivery Method Room Air 03/08/25 05:06 Vital Signs Temperature 98.0 F 03/08/25 05:06 Pulse Rate 67 03/08/25 05:06 Respiratory Rate 18 03/08/25 05:06 Blood Pressure 138/81 03/08/25 05:06 Pulse Oximetry 99 03/08/25 05:06 Oxygen Delivery Method Room Air 03/08/25 05:06 Temperature 98.2 F 03/08/25 06:31 Pulse Rate 63 03/08/25 06:31 Respiratory Rate 16 03/08/25 06:31 Blood Pressure 128/77 03/08/25 06:31 Pulse Oximetry 94 03/08/25 06:31 Oxygen Delivery Method Room Air 03/08/25 05:06 Medications Administered Medications: Discontinued Medications Generic Name Dose Route Start Last Admin Trade Name Freq PRN Reason Stop Dose Admin Sodium Chloride 1,000 mls @ 1,000 mls/hr 03/08/25 05:33 03/08/25 05:49 0.9 % Sodium Chloride 1000 Ml IV 03/08/25 06:32 1,000 mls/hr .Q1H SANTOS Administration Ondansetron HCl 4 mg 03/08/25 05:33 03/08/25 05:49 Ondansetron 2 Mg/Ml Inj IVP 03/08/25 05:34 4 mg ONCE ONE Administration Medical Decision Making Lab Data Lab results reviewed: Yes I reviewed the patient's lab results Lab results narrative: Sodium slightly low, labs otherwise reassuring. Labs: Lab Results 03/08/25 Range/Units 05:40 WBC 8.17 (4.50-11.00) K/uL RBC 4.08 (4.00-5.20) m/uL Hgb 12.9 (12.0-16.0) gm/dL Hct 36.9 (33.0-51.0) % MCV 90 (80-100) fL MCH 32 (26-34) pg MCHC 35 (32-36) gm/dL RDW Coeff of Tom 12.3 (11.5-15.5) % Plt Count 332 (140-440) K/uL Neut % (Auto) 81.6 H (42.0-72.0) % Lymph % (Auto) 11.0 L (20-44) % [place] % (Auto) 5.9 (0.0-11.0) % Eos % (Auto) 0.0 (0.0-7.0) % Baso % (Auto) 0.0 (0.0-3.0) % Neut # (Auto) 6.70 (1.7-7.0) K/uL Lymph # (Auto) 0.90 (0.90-2.90) K/uL [place] # (Auto) 0.50 (0.00-0.90) K/UL Eos # (Auto) 0.00 (0.00-0.50) K/uL Baso # (Auto) 0.00 (0.00-0.30) K/uL Abs Immat Gran (auto) 0.12 (0.00-0.30) K/uL Imm/Tot Granulo (auto) 1.5 % Sodium 129 L (135-149) mmol/L Potassium 4.4 (3.6-5.1) mmol/L Chloride 96 (96-114) mmol/L Carbon Dioxide 23 (20-32) mmol/L Anion Gap 10 (7-15) mEq/L BUN 13 (7-30) mg/dL Creatinine 0.7 (0.5-1.5) mg/dL Estimated Creat Clear 56.27 Estimated GFR 94 ml/min Glucose 134 H (60-115) mg/dL Calcium 9.5 (8.4-10.6) mg/dL C-Reactive Protein 0.7 (0.5-1.0) mg/dL POC Troponin I 0.01 (0.01-0.04) ng/ml ECG Data Attestation: I personally reviewed and interpreted this ECG as follows: Prior ECG tracings: not available for review Interpretation: Sinus rhythm with a rate of 60. No significant ST or T-wave abnormalities. Normal intervals and axis. Normal EKG. Discharge Plan Discharge Clinical Impression: Vaso vagal episode Patient Disposition: Home w/ Parent or Adult Condition: Improved Instructions: Near Syncope (ED) Additional Instructions: As we discussed, the lightheaded episode that you experience this morning was likely a combination of mildly low salt levels and mild dehydration because of your surgery yesterday. These symptoms will be amplified because of the medicines that you are currently prescribed and the anesthesia that your given yesterday. Your given salty IV fluids and a dose of anti nausea medicine here in the emergency department. The antibiotic is likely to continue causing nausea, therefore I have recommended some anti nausea medicine, ondansetron also known as Zofran that you can take up to every 8 hours if you are feeling nauseated. It is important that you keep drinking lots of fluids and that your getting salty foods in your diet. Please stick with the texture restrictions that were given by your oral surgeon yesterday. The methylprednisolone does tend to cause some hot flashes and insomnia. If you have another similar episode, drink a big glass of water and lie down for about 20 minutes. Wait to see if your symptoms improve. If they do, you can go about your day as normal. If you have any severe chest pain, high fevers (please actually measure your temperature), severe shortness of breath or other red flag symptoms, you should return to an emergency department. Otherwise, contact her oral surgeon with any further concerns. Activity Level: Activity as Tolerated Discharge Diet: Regular Prescriptions: No Action estradiol 0.5 mg tablet 0.5 mg PO QDAY Qty: 30 0RF Rx Instructions: off 5 days; repeat cycle Follow Up/Referrals: Selina Harris DO [Primary Care Provider, Family Practice] Stand Alone Forms: Network Game Interaction Info Instructions
--- OUTSIDE RECORDS SUMMARY | 2025-03-08 05:42 | XMS_ITS | CCD ---
Author Name Interface, [id number] lity Address [address] [place] [address] [address] [place] [address] [facility] Address [address] [facility] [address] [place] [address] Care Team Providers Care Blueprint Reproducer Name Role Phone Lilly JOHN, Cong Unavailable Unavailable Zhang JOHN, Nisa Unavailable Unavailable Allergies and Adverse Reactions Reason for Visit Functional Status Medications Problems Social History
--- OUTSIDE RECORDS SUMMARY | 2025-03-08 05:43 | XMS_ITS | CCD ---
Author Name Interface, [id number] lity Address [address] [place] [address] [address] [place] [address] [facility] Address [address] [facility] [address] [place] [address] Care Team Providers Care Home Aid Name Role Phone Lilly JOHN, Cong Unavailable Unavailable Zhang JOHN, Nisa Unavailable Unavailable Allergies and Adverse Reactions Reason for Visit Functional Status Medications Problems Social History
[2025-03-08] MEDS: ONDANSETRON 2 MG/ML inj 4 MG IVP (05:49)
[2025-03-08 05:54] LABS: Hematocrit 36.9 % (33.0-51.0); Hemoglobin* 12.9 gm/dL (12.0-16.0); Immature Granulocytes Abs Auto 0.12 K/uL (0.00-0.30); Immature Granulocytes Pct Auto 1.5 %; Lymphocytes Absolute Auto 0.90 K/uL (0.90-2.90); Mean Corpuscular HGB Conc 35 gm/dL (32-36); Mean Corpuscular Hemoglobin 32 pg (26-34); Mean Corpuscular Volume 90 fL (80-100); RDW Coefficient of Variation % 12.3 % (11.5-15.5); Red Blood Count 4.08 m/uL (4.00-5.20); White Blood Count* 8.17 K/uL (4.50-11.00)
[2025-03-08 05:56] LABS: Troponin, Point-of-Care* 0.01 ng/ml (0.01-0.04)
[2025-03-08 06:03] LABS: Slide Review Reflex No
[2025-03-08 06:08] LABS: Chloride* 96 mmol/L (96-114); Sodium* 129 mmol/L (135-149)
[2025-03-08 06:09] LABS: Potassium* 4.4 mmol/L (3.6-5.1)
[2025-03-08 06:12] LABS: Anion Gap 10 mEq/L (7-15); Blood Urea Nitrogen* 13 mg/dL (7-30); Calcium* 9.5 mg/dL (8.4-10.6); Carbon Dioxide* 23 mmol/L (20-32); Creatinine* 0.7 mg/dL (0.5-1.5); Est. Creatinine Clearance* 56.27; Estimated Glomerular Filt Rate 94 ml/min; Glucose* 134 mg/dL (60-115)
== END 2025-03-08 07:02 | disposition home or self-care (01) ==
PROVIDERS: Emergency Provider Family Medicine; PCP Family Medicine
DX: R55 Syncope and collapse (principal)
CPT/HCPCS: 36415; 80048; 84484; 85025; 86140; 93005; 94761; 96374; 99284; J2405; J7030